=== PATIENT | female | born 1985 | race Caucasian/White ===

== ENCOUNTER 2016-09-25 12:24 | Emergency (ER) | payer OTHER ==
[~2016-09-25] VITALS: Ht 154.9 cm; Wt 93.8 kg
[~2016-09-25 12:24] MED LIST: AQUAPHOR OINTM105 GM TP; BENADRYL50 MG PO; CLEOCIN150 MG PO; CLEOCIN300 MG PO; CLINDAMYCIN HC150 MG PO; COLACE100 MG PO; DURICEF1 GM PO; FERROUS GLUCON240 MG PO; FIORICET 50-301 EACH PO; FIORICET,ESG1 TABLET PO; IBUPROFEN800 MG PO; INDOCIN25 MG PO; KEFLEX500 MG PO; METHERGINE0.2 MG PO; Motrin PO; NAPROSYN500 MG PO; NOHOMEMEDS; PERIDEX1 ML MM; PHENERGAN-CODE120 ML PO; PRENATABS RX T1 EACH PO; PRENATAL TABLE1 EAC3 PO; PRENATAL1 EACH PO; PROMETHAZINE HC25 M1 PO; TESSALON PERLE100 MG PO; TORADOL10 MG PO; TYLENOL EXTRA500 MG PO; TYLENOL REGULA325 MG PO; TYLENOL WITH C1 EACH PO; ULTRAM50 MG PO; VALIUM5 MG PO; ZANTAC150 MG PO; ZANTAC75 M1 PO; ZITHROMAX Z-PA250 MG PO; ZITHROMAX500 MG PO; ZOFRAN4 MG PO
[2016-09-25] MEDS ORDERED: KEFLEX500 MG PO (13:09)
[2016-09-25] MEDS ORDERED: BACTRIM,SEPT1 TABLET PO (13:09)
[2016-09-25 13:53] VITALS: BP 98/70
== END 2016-09-25 13:53 | disposition home or self-care (01) ==
LOC: EME 12:24
PROC: 0H96XZZ Drainage of Back Skin, External Approach (ICD-10-PCS; principal; 2016-09-25)
DX: L02.212 Cutaneous abscess of back [any part, except buttock and flank] (principal); K64.8 Other hemorrhoids; F17.200 Nicotine dependence, unspecified, uncomplicated
CPT/HCPCS: 99281; 99283

== ENCOUNTER 2016-10-02 09:31 | Emergency (ER) | payer OTHER ==
[~2016-10-02] VITALS: Ht 157.5 cm; Wt 92.4 kg
[~2016-10-02 09:31] MED LIST changes: +BACTRIM,SEPT1 TABLET PO
[2016-10-02 09:38] VITALS: BP 111/76
[2016-10-02] MEDS ORDERED: DELTASONE20 M1 PO (10:41)
[2016-10-02] MEDS ORDERED: ATARAX,VISTARIL25 MG PO (10:41)
[2016-10-02] MEDS ORDERED: ZANTAC150 MG PO (10:41)
== END 2016-10-02 10:54 | disposition home or self-care (01) ==
LOC: EXP 09:31 → EME 09:31 → EXP 10:54
DX: L56.0 Drug phototoxic response (principal); T36.1X5A Adverse effect of cephalosporins and other beta-lactam antibiotics, initial encounter; T37.0X5A Adverse effect of sulfonamides, initial encounter; Z88.1 Allergy status to other antibiotic agents; F17.200 Nicotine dependence, unspecified, uncomplicated
CPT/HCPCS: 99281; 99284; J7512

== ENCOUNTER 2016-12-23 04:32 | Emergency (ER) | payer OTHER ==
[~2016-12-23] VITALS: Ht 157.5 cm; Wt 97.5 kg
[~2016-12-23 04:32] MED LIST changes: +ATARAX,VISTARIL25 MG PO; +DELTASONE20 M1 PO
[2016-12-23] MEDS ORDERED: NORCO 5/3251 TABLET PO (05:36)
[2016-12-23] MEDS ORDERED: BACTRIM,SEPT1 TABLET PO (05:36)
[2016-12-23 05:52] VITALS: BP 125/80
[2016-12-23] MEDS ORDERED: CAMILA0.35 MG PO (19:08)
== END 2016-12-23 05:56 | disposition home or self-care (01) ==
LOC: EME 04:32
DX: L02.414 Cutaneous abscess of left upper limb (principal)
CPT/HCPCS: 99281; 99283

== ENCOUNTER 2016-12-23 16:36 | Inpatient (IN) | payer OTHER ==
[~2016-12-23] VITALS: Ht 157.5 cm; Wt 97.9 kg
[~2016-12-23 16:36] MED LIST changes: +NORCO 5/3251 TABLET PO
[2016-12-23 17:57] LABS: EOSINOPHIL (%) 2.1 % (0-5); EOSINOPHIL COUNT 0.3 K/uL (0-0.3); HEMATOCRIT 41.4 % (36.0-46.0); IMMATURE GRANULOCYTE (%) 0.7 % (0.0-0.7); IMMATURE GRANULOCYTE COUNT 0.1 K/uL; INSTRUMENT ABS NEUTROPHIL CT 13.8 K/uL; LYMPHOCYTE COUNT 0.7 K/uL (1.0-2.8); MCH 27.9 PG (29.0-34.0); MCHC 33.3 G/DL (30.0-36.0); MCV 83.8 FL (83-99); MEAN PLAT.VOLUME 10.9 uM^3 (9.5-12.4); MONOCYTE COUNT 0.2 K/uL (0-0.8); NEUTROPHIL (%) 91.5 % (45-76); NEUTROPHIL COUNT 13.8 K/uL (1.8-6.4); PLATELET COUNT 239 K/uL (156-360); RBC DIS.WIDTH-CV 13.1 % (11.8-14.6); RBC DIS.WIDTH-SD 40.4 % (39-53); RED BLOOD COUNT 4.94 M/uL (3.80-5.20); WHITE BLOOD COUNT 15.1 K/uL (4.1-10.2)
[2016-12-23 18:07] LABS: CHLORIDE 102 mEq/L (99-109); POTASSIUM 3.7 mEq/L (3.7-5.4); SODIUM 135 mEq/L (136-147)
[2016-12-23 18:09] LABS: GLUCOSE 126 mg/dL (70-99)
[2016-12-23 18:11] LABS: ANION GAP 11 MEQ/L (2-14); TOTAL BILIRUBIN 0.5 mg/dL (0.0-1.0)
[2016-12-23 18:13] LABS: ALKALINE PHOSPHATASE 96 IU/L (3-129); GFR ESTIMATE (CALCULATED) > 59 mL/min/
[2016-12-23 18:14] LABS: UREA NITROGEN (BUN) 6 mg/dL (9-23)
[2016-12-23 18:16] LABS: LIPASE 8 U/L (1.0-51.0)
[2016-12-23 18:17] LABS: CREATINE KINASE 60 IU/L (1-294)
[2016-12-23 18:47] LABS: ADD MIUA? YES; BILIRUBIN NEGATIVE; BLOOD NEGATIVE; COLOR YELLOW ((YELLOW)); GLUCOSE (STRIP) NEGATIVE; KETONES NEGATIVE; LEUKOCYTES TRACE; NITRITE NEGATIVE; PROTEIN (STRIP) 30; SPECIFIC GRAVITY 1.018 (1.000-1.030); UROBILINOGEN 0.2 MG/DL (0.2-1.0)
[2016-12-23 18:59] LABS: BACTERIA NONE SEEN /HPF; EPITHELIAL CELLS RARE /HPF; HYALINE CASTS 0-5 /LPF; MUCUS TRACE /LPF; RED BLOOD CELLS 0-5 /HPF (0-5); WHITE BLOOD CELLS 0-5 /HPF (0-5)
[2016-12-23] MEDS ORDERED: CAMILA0.35 MG PO (19:08)
[2016-12-24 00:41] VITALS: BP 100/53
[2016-12-24 04:02] VITALS: BP 100/50
[2016-12-24 07:14] LABS: EOSINOPHIL (%) 5.2 % (0-5); EOSINOPHIL COUNT 0.5 K/uL (0-0.3); HEMATOCRIT 32.6 % (36.0-46.0); IMMATURE GRANULOCYTE (%) 0.3 % (0.0-0.7); INSTRUMENT ABS NEUTROPHIL CT 8.3 K/uL; LYMPHOCYTE COUNT 1.1 K/uL (1.0-2.8); MCH 28.6 PG (29.0-34.0); MCHC 33.7 G/DL (30.0-36.0); MCV 84.9 FL (83-99); MEAN PLAT.VOLUME 11.7 uM^3 (9.5-12.4); MONOCYTE (%) 3.2 % (3-12); MONOCYTE COUNT 0.3 K/uL (0-0.8); NEUTROPHIL (%) 80.9 % (45-76); NEUTROPHIL COUNT 8.3 K/uL (1.8-6.4); PLATELET COUNT 195 K/uL (156-360); RBC DIS.WIDTH-CV 13.2 % (11.8-14.6); WHITE BLOOD COUNT 10.2 K/uL (4.1-10.2)
[2016-12-24 07:16] LABS: RED BLOOD COUNT 3.84 M/uL (3.80-5.20)
[2016-12-24 07:22] LABS: ANION GAP 7 MEQ/L (2-14); CHLORIDE 109 MEQ/L (99-109); GFR ESTIMATE (CALCULATED) > 59 mL/min/; POTASSIUM 3.7 MEQ/L (3.7-5.4); SAMPLE HEMOLYSIS CHECK 0; SAMPLE ICTERIC CHECK 0; SAMPLE LIPEMIA CHECK 0; SODIUM 136 MEQ/L (136-147); UREA NITROGEN (BUN) 5 mg/dL (9-23)
[2016-12-24 07:26] LABS: GLUCOSE 88 mg/dL (70-99)
[2016-12-24 08:10] VITALS: BP 97/56
[2016-12-24 12:00] VITALS: BP 109/59
[2016-12-24 12:14] LABS: LYME DISEASE SEROLOGY SCREEN NEGATIVE (NEGATIVE)
[2016-12-24 15:00] VITALS: BP 111/68
[2016-12-24 20:41] VITALS: BP 102/55
[2016-12-25 00:29] VITALS: BP 103/53
[2016-12-25 07:03] LABS: EOSINOPHIL (%) 5.7 % (0-5); EOSINOPHIL COUNT 0.4 K/uL (0-0.3); IMMATURE GRANULOCYTE (%) 0.3 % (0.0-0.7); INSTRUMENT ABS NEUTROPHIL CT 4.6 K/uL; LYMPHOCYTE COUNT 1.3 K/uL (1.0-2.8); MCH 27.2 PG (29.0-34.0); MCHC 31.9 G/DL (30.0-36.0); MCV 85.3 FL (83-99); MEAN PLAT.VOLUME 11.3 uM^3 (9.5-12.4); MONOCYTE (%) 5.7 % (3-12); MONOCYTE COUNT 0.4 K/uL (0-0.8); NEUTROPHIL (%) 68.4 % (45-76); NEUTROPHIL COUNT 4.6 K/uL (1.8-6.4); PLATELET COUNT 180 K/uL (156-360); RBC DIS.WIDTH-CV 13.3 % (11.8-14.6); RBC DIS.WIDTH-SD 41.5 % (39-53); RED BLOOD COUNT 3.75 M/uL (3.80-5.20); WHITE BLOOD COUNT 6.7 K/uL (4.1-10.2)
[2016-12-25 07:14] LABS: Estimated Average Glucose 103 mg/dL (70-123); HEMOGLOBIN A1c (GLYCOHEMOGLOB) 5.2 % HGB (Below 5.7)
[2016-12-25 07:28] LABS: ANION GAP 8 MEQ/L (2-14); CHLORIDE 110 MEQ/L (99-109); GFR ESTIMATE (CALCULATED) > 59 mL/min/; GLUCOSE 83 mg/dL (70-99); MAGNESIUM 1.8 mg/dl (1.3-2.7); POTASSIUM 3.8 MEQ/L (3.7-5.4); SAMPLE HEMOLYSIS CHECK 0; SAMPLE ICTERIC CHECK 0; SAMPLE LIPEMIA CHECK 0; SODIUM 141 MEQ/L (136-147); UREA NITROGEN (BUN) 5 mg/dL (9-23)
[2016-12-25 07:35] VITALS: BP 121/81
[2016-12-25 11:30] VITALS: BP 125/81
[2016-12-25 15:27] VITALS: BP 112/74
[2016-12-25 20:08] VITALS: BP 118/67
[2016-12-26 00:45] VITALS: BP 107/58
[2016-12-26 08:15] VITALS: BP 106/58
[2016-12-26 16:00] VITALS: BP 117/93
[2016-12-27 00:45] VITALS: BP 114/71
[2016-12-27 07:35] VITALS: BP 117/71
[2016-12-27 16:00] VITALS: BP 143/97
[2016-12-27 20:59] VITALS: BP 130/50
[2016-12-28 00:38] VITALS: BP 129/83
[2016-12-28 08:15] VITALS: BP 97/53
[2016-12-28] MEDS ORDERED: DOXYCYCLINE HY100 M3 PO (14:42)
== END 2016-12-28 15:20 | disposition home or self-care (01) | DRG 872 ==
LOC: EME 16:36 → 2EAST 22:39 → EDOF 22:39 → 2EAST 12-24 00:29
PROVIDERS: Hospitalist; Internal Medicine; Physician Assistant
DX: A41.9 Sepsis, unspecified organism (principal); L03.312 Cellulitis of back [any part except buttock and flank]; B95.62 Methicillin resistant Staphylococcus aureus infection as the cause of diseases classified elsewhere; L02.212 Cutaneous abscess of back [any part, except buttock and flank]; R21 Rash and other nonspecific skin eruption; M54.9 Dorsalgia, unspecified; R10.9 Unspecified abdominal pain; R11.2 Nausea with vomiting, unspecified; E66.9 Obesity, unspecified; Z68.39 Body mass index [BMI] 39.0-39.9, adult; F17.210 Nicotine dependence, cigarettes, uncomplicated
CPT/HCPCS: 71260; 80048; 80053; 81003; 82550; 83036; 83605; 83690; 83735; 85025; 86618; 87040; 87070; 87075; 87077; 87147; 87186; 87205; 99281; 99283; 99284; J0690; J0692; J1644; J3010; J3370; J7030; J7050

== ENCOUNTER 2017-01-01 17:02 | Emergency (ER) | payer OTHER ==
[~2017-01-01] VITALS: Ht 157.5 cm; Wt 98.0 kg
[~2017-01-01 17:02] MED LIST changes: +CAMILA0.35 MG PO; +DOXYCYCLINE HY100 M3 PO
[2017-01-01 19:08] LABS: HEMATOCRIT 39.1 % (36.0-46.0); MCH 27.4 PG (29.0-34.0); MCHC 32.2 G/DL (30.0-36.0); MEAN PLAT.VOLUME 10.2 uM^3 (9.5-12.4); RBC DIS.WIDTH-CV 13.2 % (11.8-14.6); RBC DIS.WIDTH-SD 40.5 % (39-53); WHITE BLOOD COUNT 9.9 K/uL (4.1-10.2)
[2017-01-01 19:09] LABS: PLATELET COUNT 447 K/uL (156-360)
[2017-01-01 19:27] LABS: CHLORIDE 104 mEq/L (99-109); POTASSIUM 4.2 mEq/L (3.7-5.4); SODIUM 138 mEq/L (136-147)
[2017-01-01 19:29] LABS: GLUCOSE 94 mg/dL (70-99)
[2017-01-01 19:30] LABS: ANION GAP 8 MEQ/L (2-14)
[2017-01-01 19:31] LABS: TOTAL BILIRUBIN 0.2 mg/dL (0.0-1.0)
[2017-01-01 19:32] LABS: ALKALINE PHOSPHATASE 128 IU/L (3-129)
[2017-01-01 19:33] LABS: GFR ESTIMATE (CALCULATED) > 59 mL/min/
[2017-01-01 19:34] LABS: UREA NITROGEN (BUN) 6 mg/dL (9-23)
[2017-01-01 19:35] LABS: QUANTITATIVE HCG < 4.0 MIU/ML
[2017-01-01 20:10] VITALS: BP 115/65
== END 2017-01-01 20:11 | disposition home or self-care (01) ==
LOC: EME 17:02
PROVIDERS: Physician Assistant
DX: R53.83 Other fatigue (principal); T50.995A Adverse effect of other drugs, medicaments and biological substances, initial encounter; L02.414 Cutaneous abscess of left upper limb; Z86.14 Personal history of Methicillin resistant Staphylococcus aureus infection; Z88.0 Allergy status to penicillin; F17.200 Nicotine dependence, unspecified, uncomplicated
CPT/HCPCS: 80053; 84702; 85027; 99281; 99284

== ENCOUNTER 2017-04-18 16:15 | Emergency (ER) | payer OTHER ==
[~2017-04-18] VITALS: Ht 157.5 cm; Wt 96.4 kg
[2017-04-18 17:10] LABS: MCH 28.4 PG (29.0-34.0); MCHC 33.3 G/DL (30.0-36.0); MCV 85.3 FL (83-99); NRBC (%) 0.2 /100 WBC (0-0); PLATELET COUNT 330 K/uL (156-360); RBC DIS.WIDTH-CV 13.5 % (11.8-14.6); RBC DIS.WIDTH-SD 41.6 % (39-53); RED BLOOD COUNT 4.69 M/uL (3.80-5.20); WHITE BLOOD COUNT 9.3 K/uL (4.1-10.2)
[2017-04-18 17:19] LABS: CHLORIDE 107 mEq/L (99-109); POTASSIUM 4.5 mEq/L (3.7-5.4); SODIUM 137 mEq/L (136-147)
[2017-04-18 17:21] LABS: GLUCOSE 86 mg/dL (70-99)
[2017-04-18 17:22] LABS: ANION GAP 8 MEQ/L (2-14)
[2017-04-18 17:25] LABS: GFR ESTIMATE (CALCULATED) > 59 mL/min/; UREA NITROGEN (BUN) 11 mg/dL (9-23)
[2017-04-18 17:33] LABS: QUANTITATIVE HCG < 4.0 MIU/ML
[2017-04-18 17:47] LABS: INFLUENZA A VIRAL ANTIGEN NEGATIVE; INFLUENZA B VIRAL ANTIGEN NEGATIVE
[2017-04-18 18:01] LABS: ADD MIUA? NO; BILIRUBIN NEGATIVE; BLOOD NEGATIVE; COLOR STRAW ((YELLOW)); GLUCOSE (STRIP) NEGATIVE; KETONES NEGATIVE; LEUKOCYTES NEGATIVE; NITRITE NEGATIVE; PROTEIN (STRIP) NEGATIVE; SPECIFIC GRAVITY 1.011 (1.000-1.030); UROBILINOGEN 0.2 MG/DL (0.2-1.0)
[2017-04-18] MEDS ORDERED: ZOFRAN ODT4 MG PO (18:03)
[2017-04-18 18:39] VITALS: BP 116/73
== END 2017-04-18 18:54 | disposition home or self-care (01) ==
LOC: EME 16:15
PROVIDERS: Nurse Practitioner Family
DX: B34.9 Viral infection, unspecified (principal); R68.83 Chills (without fever); R42 Dizziness and giddiness; Z86.14 Personal history of Methicillin resistant Staphylococcus aureus infection; F17.200 Nicotine dependence, unspecified, uncomplicated
CPT/HCPCS: 80048; 81003; 84702; 85027; 87502; 99281; 99284; J7030

== ENCOUNTER 2017-04-23 07:33 | Emergency (ER) | payer OTHER ==
[~2017-04-23] VITALS: Ht 157.5 cm; Wt 96.4 kg
[~2017-04-23 07:33] MED LIST changes: +ZOFRAN ODT4 MG PO
[2017-04-23] MEDS ORDERED: ZITHROMAX500 MG PO (08:43)
[2017-04-23 08:56] VITALS: BP 111/78
== END 2017-04-23 08:57 | disposition home or self-care (01) ==
LOC: EME 07:33
DX: J02.0 Streptococcal pharyngitis (principal); H92.01 Otalgia, right ear; Z88.1 Allergy status to other antibiotic agents; Z86.14 Personal history of Methicillin resistant Staphylococcus aureus infection; F17.200 Nicotine dependence, unspecified, uncomplicated
CPT/HCPCS: 87651 90; 99281; 99283

== ENCOUNTER 2017-05-26 21:21 | Emergency (ER) | payer OTHER ==
[~2017-05-26] VITALS: Ht 154.9 cm; Wt 93.4 kg
[~2017-05-26 21:21] MED LIST changes: +FIORICET 50-301 EAC1 PO
[2017-05-27] MEDS ORDERED: FLONASE16 G1 BOTH NARES (00:28)
[2017-05-27] MEDS ORDERED: VENTOLIN HFA18 GM IH (00:28)
[2017-05-27] MEDS ORDERED: MEDROL DOSEPAK4 MG PO (00:28)
[2017-05-27] MEDS ORDERED: ZITHROMAX Z-PA250 MG PO (00:28)
[2017-05-27 00:46] VITALS: BP 105/63
== END 2017-05-27 00:47 | disposition home or self-care (01) ==
LOC: EME 21:21 → EXP 21:21
DX: J20.9 Acute bronchitis, unspecified (principal); J32.9 Chronic sinusitis, unspecified; F17.200 Nicotine dependence, unspecified, uncomplicated; Z88.1 Allergy status to other antibiotic agents
CPT/HCPCS: 71020; 93005; 94640; 99281; 99284; J7512

== ENCOUNTER 2017-07-09 22:55 | Emergency (ER) | payer OTHER ==
[~2017-07-09] VITALS: Ht 157.5 cm; Wt 93.4 kg
[~2017-07-09 22:55] MED LIST changes: +FLONASE16 G1 BOTH NARES; +MEDROL DOSEPAK4 MG PO; +VENTOLIN HFA18 GM IH
[2017-07-10] LABS: HEMATOCRIT 40.5 % (36.0-46.0); HEMOGLOBIN 13.6 G/DL (11.9-15.5); MCH 28.6 PG (29.0-34.0); MCHC 33.6 G/DL (30.0-36.0); MCV 85.3 FL (83-99); PLATELET COUNT 245 K/uL (156-360); RBC DIS.WIDTH-CV 13.3 % (11.8-14.6); RBC DIS.WIDTH-SD 41.6 % (39-53); RED BLOOD COUNT 4.75 M/uL (3.80-5.20); WHITE BLOOD COUNT 7.7 K/uL (4.1-10.2)
[2017-07-10 00:02] LABS: APPEARANCE SL.HAZY ((CLEAR)); BILIRUBIN NEGATIVE; BLOOD NEGATIVE; COLOR YELLOW ((YELLOW)); GLUCOSE (STRIP) NEGATIVE; KETONES NEGATIVE; LEUKOCYTES TRACE; NITRITE NEGATIVE; PROTEIN (STRIP) NEGATIVE; SPECIFIC GRAVITY 1.028 (1.000-1.030); UROBILINOGEN 0.2 MG/DL (0.2-1.0)
[2017-07-10 00:04] LABS: BACTERIA NONE SEEN /HPF; EPITHELIAL CELLS 1+ /HPF; MUCUS TRACE /LPF; RED BLOOD CELLS 0-5 /HPF (0-5); UCUL ADDED? NO; WHITE BLOOD CELLS 0-5 /HPF (0-5)
[2017-07-10 00:08] LABS: ALBUMIN 4.1 g/dL (3.2-4.8); CHLORIDE 109 mEq/L (99-109); POTASSIUM 4.1 mEq/L (3.7-5.4); SODIUM 142 mEq/L (136-147)
[2017-07-10 00:10] LABS: GLUCOSE 87 mg/dL (70-99); TOTAL PROTEIN 7.2 g/dL (6.4-8.3)
[2017-07-10 00:12] LABS: TOTAL BILIRUBIN 0.2 mg/dL (0.0-1.0)
[2017-07-10 00:14] LABS: ALKALINE PHOSPHATASE 105 IU/L (3-129); CREATININE 0.8 mg/dL (0.6-1.3); GFR ESTIMATE (CALCULATED) > 59 mL/min/
[2017-07-10 00:15] LABS: UREA NITROGEN (BUN) 11 mg/dL (9-23)
[2017-07-10 00:16] LABS: AST (GOT) 19 IU/L (2-34)
[2017-07-10 00:17] LABS: ALT (GPT) 20 IU/L (3-49)
[2017-07-10 00:23] LABS: QUANTITATIVE HCG < 4.0 MIU/ML
[2017-07-10] MEDS ORDERED: ZOFRAN ODT4 MG PO (01:07)
[2017-07-10 01:24] VITALS: BP 118/78
== END 2017-07-10 01:25 | disposition home or self-care (01) ==
LOC: EME 22:55
PROVIDERS: Physician Assistant
DX: R11.2 Nausea with vomiting, unspecified (principal); R19.7 Diarrhea, unspecified; R10.9 Unspecified abdominal pain; F17.200 Nicotine dependence, unspecified, uncomplicated
CPT/HCPCS: 80053; 81003; 84702; 85027; 99281; 99284; J2405; J7030; S0028

== ENCOUNTER 2017-08-06 21:23 | Emergency (ER) | payer OTHER ==
[~2017-08-06] VITALS: Ht 157.5 cm; Wt 95.3 kg
[2017-08-06 21:55] LABS: HEMATOCRIT 38.8 % (36.0-46.0); HEMOGLOBIN 13.1 G/DL (11.9-15.5); MCHC 33.8 G/DL (30.0-36.0); MCV 85.8 FL (83-99); PLATELET COUNT 264 K/uL (156-360); RBC DIS.WIDTH-CV 13.4 % (11.8-14.6); RBC DIS.WIDTH-SD 41.8 % (39-53); RED BLOOD COUNT 4.52 M/uL (3.80-5.20); WHITE BLOOD COUNT 7.8 K/uL (4.1-10.2)
[2017-08-06 22:08] LABS: CHLORIDE 109 mEq/L (99-109); POTASSIUM 4.3 mEq/L (3.7-5.4); SODIUM 139 mEq/L (136-147)
[2017-08-06 22:09] LABS: GLUCOSE 86 mg/dL (70-99)
[2017-08-06 22:13] LABS: CREATININE 0.7 mg/dL (0.6-1.3); GFR ESTIMATE (CALCULATED) > 59 mL/min/
[2017-08-06 22:14] LABS: UREA NITROGEN (BUN) 11 mg/dL (9-23)
[2017-08-06] MEDS ORDERED: COMPAZINE10 MG PO (23:03)
[2017-08-06 23:38] VITALS: BP 104/69
== END 2017-08-06 23:50 | disposition home or self-care (01) ==
LOC: EME 21:23
DX: G43.109 Migraine with aura, not intractable, without status migrainosus (principal); R11.2 Nausea with vomiting, unspecified; R20.0 Anesthesia of skin; Z82.3 Family history of stroke; F17.200 Nicotine dependence, unspecified, uncomplicated; Z88.0 Allergy status to penicillin
CPT/HCPCS: 70450; 71046; 80048; 85027; 93005; 99281; 99285; J0780

== ENCOUNTER 2017-08-25 21:48 | Emergency (ER) | payer OTHER ==
[~2017-08-25] VITALS: Ht 157.5 cm; Wt 94.1 kg
[~2017-08-25 21:48] MED LIST changes: +COMPAZINE10 MG PO
[2017-08-25] MEDS ORDERED: LIDOCAINE20 MG/1 M5 PO (23:24)
[2017-08-25] MEDS ORDERED: CEFDINIR300 MG PO (23:24)
[2017-08-25] MEDS ORDERED: NORCO 5/3251 TABLET PO (23:24)
[2017-08-26 00:51] VITALS: BP 100/70
== END 2017-08-26 00:51 | disposition home or self-care (01) ==
LOC: EME 21:48
DX: L03.211 Cellulitis of face (principal); K05.00 Acute gingivitis, plaque induced; F17.200 Nicotine dependence, unspecified, uncomplicated; Z88.0 Allergy status to penicillin; Z86.14 Personal history of Methicillin resistant Staphylococcus aureus infection
CPT/HCPCS: 99281; 99285

== ENCOUNTER 2017-09-12 22:31 | Emergency (ER) | payer OTHER ==
[~2017-09-12] VITALS: Ht 157.5 cm; Wt 94.4 kg
[~2017-09-12 22:31] MED LIST changes: +CEFDINIR300 MG PO; +LIDOCAINE20 MG/1 M5 PO
[2017-09-12 23:14] LABS: APPEARANCE CLEAR ((CLEAR)); BILIRUBIN NEGATIVE; BLOOD NEGATIVE; COLOR STRAW ((YELLOW)); GLUCOSE (STRIP) NEGATIVE; KETONES NEGATIVE; LEUKOCYTES NEGATIVE; NITRITE NEGATIVE; PROTEIN (STRIP) NEGATIVE; SPECIFIC GRAVITY 1.006 (1.000-1.030); UCUL ADDED? NO; UROBILINOGEN 0.2 MG/DL (0.2-1.0)
[2017-09-12 23:14] LABS: HEMATOCRIT 38.4 % (36.0-46.0); HEMOGLOBIN 12.9 G/DL (11.9-15.5); MCH 28.8 PG (29.0-34.0); MCHC 33.6 G/DL (30.0-36.0); MCV 85.7 FL (83-99); PLATELET COUNT 297 K/uL (156-360); RBC DIS.WIDTH-CV 12.9 % (11.8-14.6); RBC DIS.WIDTH-SD 39.9 % (39-53); RED BLOOD COUNT 4.48 M/uL (3.80-5.20); WHITE BLOOD COUNT 8.7 K/uL (4.1-10.2)
[2017-09-12 23:22] LABS: ALBUMIN 4.1 g/dL (3.2-4.8)
[2017-09-12 23:23] LABS: CHLORIDE 106 mEq/L (99-109); SODIUM 139 mEq/L (136-147)
[2017-09-12 23:25] LABS: GLUCOSE 95 mg/dL (70-99); TOTAL PROTEIN 7.5 g/dL (6.4-8.3)
[2017-09-12 23:27] LABS: TOTAL BILIRUBIN 0.1 mg/dL (0.0-1.0)
[2017-09-12 23:28] LABS: ALKALINE PHOSPHATASE 104 IU/L (3-129)
[2017-09-12 23:29] LABS: CREATININE 0.8 mg/dL (0.6-1.3); GFR ESTIMATE (CALCULATED) > 59 mL/min/
[2017-09-12 23:30] LABS: AST (GOT) 16 IU/L (2-34); UREA NITROGEN (BUN) 9 mg/dL (9-23)
[2017-09-12 23:31] LABS: ALT (GPT) 20 IU/L (3-49)
[2017-09-12 23:38] LABS: QUANTITATIVE HCG 68.8 MIU/ML
[2017-09-13 03:51] LABS: SOURCE SWAB
[2017-09-13 05:59] VITALS: BP 105/56
[2017-09-13 17:28] LABS: CANDIDA DNA PROBE NEGATIVE; GARDNERELLA DNA PROBE NEGATIVE; TRICHOMONAS DNA PROBE NEGATIVE
== END 2017-09-13 05:59 | disposition home or self-care (01) ==
LOC: EME 22:31
PROVIDERS: Emergency Medicine
DX: R10.2 Pelvic and perineal pain (principal); R11.2 Nausea with vomiting, unspecified; F17.200 Nicotine dependence, unspecified, uncomplicated; Z86.14 Personal history of Methicillin resistant Staphylococcus aureus infection; Z88.0 Allergy status to penicillin
CPT/HCPCS: 76705; 76801; 80053; 81003; 81025; 84702; 85027; 87210; 87480; 87491; 87510; 87591; 87660; 99281; 99284

== ENCOUNTER 2017-12-09 18:42 | Emergency (ER) | payer OTHER ==
[~2017-12-09] VITALS: Ht 157.5 cm; Wt 99.3 kg
[2017-12-09 19:45] LABS: HEMATOCRIT 33.7 % (36.0-46.0); MCH 30.5 PG (29.0-34.0); MCHC 35.6 G/DL (30.0-36.0); MCV 85.8 FL (83-99); PLATELET COUNT 193 K/uL (156-360); RBC DIS.WIDTH-CV 12.7 % (11.8-14.6); RBC DIS.WIDTH-SD 39.8 % (39-53); RED BLOOD COUNT 3.93 M/uL (3.80-5.20); WHITE BLOOD COUNT 8.7 K/uL (4.1-10.2)
[2017-12-09 20:02] LABS: ALBUMIN 3.4 G/DL (3.2-4.8); CHLORIDE 105 MEQ/L (99-109); POTASSIUM 3.7 MEQ/L (3.7-5.4); SODIUM 137 MEQ/L (136-147); TOTAL BILIRUBIN 0.2 MG/DL (0.0-1.0)
[2017-12-09 20:05] LABS: APPEARANCE CLEAR ((CLEAR)); BILIRUBIN NEGATIVE; BLOOD NEGATIVE; COLOR YELLOW ((YELLOW)); GLUCOSE (STRIP) NEGATIVE; KETONES NEGATIVE; LEUKOCYTES TRACE; NITRITE NEGATIVE; PROTEIN (STRIP) NEGATIVE; SPECIFIC GRAVITY 1.015 (1.000-1.030); UROBILINOGEN 0.2 MG/DL (0.2-1.0)
[2017-12-09 20:08] LABS: ALKALINE PHOSPHATASE 85 IU/L (3-129); ALT (GPT) 6 IU/L (3-49); AST (GOT) 8 IU/L (2-34); CREATININE 0.4 MG/DL (0.6-1.3); GFR ESTIMATE (CALCULATED) > 59 mL/min/; GLUCOSE 86 mg/dL (70-99); TOTAL PROTEIN 5.9 G/DL (6.4-8.3); UREA NITROGEN (BUN) 5 mg/dL (9-23)
[2017-12-09 20:12] LABS: QUANTITATIVE HCG 14873.1 MIU/ML
[2017-12-09 20:25] LABS: BACTERIA RARE /HPF; EPITHELIAL CELLS RARE /HPF; MUCUS TRACE /LPF; RED BLOOD CELLS 0-5 /HPF (0-5); UCUL ADDED? NO; WHITE BLOOD CELLS 0-5 /HPF (0-5)
[2017-12-09 21:41] VITALS: BP 99/57
== END 2017-12-09 21:41 | disposition home or self-care (01) ==
LOC: EME 18:42
PROVIDERS: Physician Assistant Medical
DX: O99.89 Other specified diseases and conditions complicating pregnancy, childbirth and the puerperium (principal); R10.9 Unspecified abdominal pain; Z3A.15 15 weeks gestation of pregnancy; O99.332 Smoking (tobacco) complicating pregnancy, second trimester; F17.200 Nicotine dependence, unspecified, uncomplicated; Z86.14 Personal history of Methicillin resistant Staphylococcus aureus infection; Z88.0 Allergy status to penicillin
CPT/HCPCS: 80053; 81003; 84702; 85027; 87651 90; 99281; 99285